=== PATIENT | male | born 1960 | race Caucasian/White ===

== ENCOUNTER 2019-10-21 23:39 | Emergency (ER) | payer MEDICAID, OTHER ==
[~2019-10-21] VITALS: Ht 172.7 cm; Wt 74.3 kg
--- NOTE | 2019-10-22 00:13 | NUR ---
Patient presents to ER c/o sternal CP and dizziness which woke him up from sleep. Patient states he has never had this pain before. Denies SOB, N/V. Pain has since resolved. Patient is in NAD. Respirations even and unlabored.
[2019-10-22] MEDS ORDERED: AMLO-150 PO (00:15)
[2019-10-22] MEDS ORDERED: LORA10TA72 PO (00:16)
[2019-10-22 00:31] LABS: BASOPHILS # (AUTO) 0.04 x10^3/uL (0-0.1); BASOPHILS % (AUTO) 1 % (0-1); EOSINOPHILS # (AUTO) 0.27 x10^3/uL (0-0.4); EOSINOPHILS % (AUTO) 4 % (1-7); LYMPHOCYTES # (AUTO) 1.79 x10^3/uL (1-3.4); LYMPHOCYTES % (AUTO) 25 % (22-44); MD NO; MEAN CORPUSCULAR HEMOGLOBIN 32.5 pg (27.5-34.5); MEAN CORPUSCULAR HGB CONC 33.1 g/dL (33.2-36.2); MEAN CORPUSCULAR VOLUME 98.2 fL (81-97); MEAN PLATELET VOLUME 11.6 fL (7.4-10.4); MONOCYTES # (AUTO) 0.56 x10^3/uL (0.2-0.8); MONOCYTES % (AUTO) 8 % (2-9); NEUTROPHILS % (AUTO) 62 % (42-75); PLATELET COUNT 122 x10^3/uL (130-400); RED CELL DISTRIBUTION WIDTH 12.8 % (9.4-14.8)
[2019-10-22 00:40] LABS: ALANINE AMINOTRANSFERASE 43 U/L (12-78); ALBUMIN 4.1 g/dL (3.4-5.0); ANION GAP 5 mmol/L (5-15); CALCIUM 8.6 mg/dL (8.5-10.1); CHLORIDE 103 mmol/L (98-107); CREATININE 0.88 mg/dL (0.7-1.3)
[2019-10-22 00:44] LABS: ALKALINE PHOSPHATASE 79 U/L (45-117); TOTAL PROTEIN 7.4 g/dL (6.4-8.2); TROPONIN I < 0.015 ng/mL (0.000-0.045)
--- NOTE | 2019-10-22 01:48 | NUR ---
Break RN: assumed care of pt on behalf of primary RN for lunch break only. pt resting in position of comfort. no apparent distress. no family at bedside. awaiting test results
[2019-10-22 03:54] LABS: TROPONIN I < 0.015 ng/mL (0.000-0.045)
[2019-10-22 04:37] VITALS: BP 121/73
== END 2019-10-22 04:39 | disposition home or self-care (01) ==
LOC: ED 10-22 00:09
DX: R07.89 Other chest pain (principal); M54.5 Low back pain; J98.4 Other disorders of lung; I10 Essential (primary) hypertension
CPT/HCPCS: 36415; 71045; 80053; 83880; 84484; 85025; 85379; 93005; 99285